=== PATIENT | female | born 1950 | race Caucasian/White ===

== ENCOUNTER → 2016-12-03 | Outpatient (CLI) | payer OTHER | LOC: FIMAGING 09:57 | PROVIDERS: ATTEND Physician Assistant | DX: R93.7 Abnormal findings on diagnostic imaging of other parts of musculoskeletal system (principal) | CPT/HCPCS: 78306; A9503 ==

== ENCOUNTER → 2016-12-17 | Outpatient (CLI) | payer OTHER ==
[~2016-12-17] MED LIST: GADOBUTROL 10 ML VIAL IVP ONE
== END ==
LOC: FIMAGING 12:07
PROVIDERS: ATTEND Physical Medicine & Rehabilitation
DX: M99.85 Other biomechanical lesions of pelvic region (principal); M77.8 Other enthesopathies, not elsewhere classified
CPT/HCPCS: A9585

== ENCOUNTER 2016-12-28 10:04 | Day surgery (SDC) | payer OTHER ==
[2016-12-28 11:09] LABS: % IMMATURE GRANULYOCYTES 0.2 % (0.0-1.1); ABSOLUTE IMMATURE GRANULOCYTES 0.01 10^3/uL (0.00-0.10); ADD DIFF? NO; ADD MORPH? NO; ADD SCAN? NO; ATYPICAL LYMPHOCYTE FLAG 0 (0-99); FRAGMENT RBC FLAG 0 (0-99); HEMATOCRIT 36.9 % (38.0-47.0); HEMOGLOBIN 12.6 g/dL (12.6-16.3); LEFT SHIFT FLG 0 (0-99); LIPEMIA HEMOLYSIS FLAG 90 (0-99); MEAN CELL HEMOGLOBIN 32.6 pg (27.9-34.1); MEAN CELL HEMOGLOBIN CONCENTR. 34.1 g/dL (32.4-36.7); MEAN CELL VOLUME 95.6 fL (81.5-99.8); MEAN PLATELET VOLUME 9.4 fL (8.7-11.7); PLATELET CLUMPS FLAG 10 (0-99); PLATELET COUNT 335 10^3/uL (150-400); RED BLOOD CELL COUNT 3.86 10^6/uL (4.18-5.33); RED CELL DISTRIBUTION WIDTH 12.7 % (11.5-15.2)
[2016-12-28] MEDS ORDERED: MIDAZOLAM 2 MG/2 ML VIAL ONE (11:19)
[2016-12-28] MEDS ORDERED: fentaNYL 100 MCG/2 ML INJ ONE (11:19)
[2016-12-28 11:21] LABS: INR 1.05 (0.83-1.16); PROTIME(PATIENT) 13.6 SEC (12.0-15.0)
[2016-12-28 11:22] LABS: APTT 26.9 SEC (23.0-38.0)
== END 2016-12-28 14:30 | disposition home or self-care (01) ==
LOC: FIMAGING 10:04
PROVIDERS: ATTEND Physician Assistant
PROC: 0QB33ZX Excision of Left Pelvic Bone, Percutaneous Approach, Diagnostic (ICD-10-PCS; principal; 2016-12-28 13:10)
DX: R93.7 Abnormal findings on diagnostic imaging of other parts of musculoskeletal system (principal)
CPT/HCPCS: J2250; J3010

== ENCOUNTER → 2017-02-13 | Outpatient (CLI) | payer OTHER | LOC: FIMAGING 15:00 | DX: Z12.31 Encounter for screening mammogram for malignant neoplasm of breast (principal); Z80.3 Family history of malignant neoplasm of breast | CPT/HCPCS: G0202 ==

== ENCOUNTER → 2017-04-08 | Outpatient (CLI) | payer OTHER | LOC: FIMAGING 11:10 | PROVIDERS: ATTEND Internal Medicine | DX: Z13.820 Encounter for screening for osteoporosis (principal); M81.0 Age-related osteoporosis without current pathological fracture; Z82.62 Family history of osteoporosis; Z78.0 Asymptomatic menopausal state ==

== ENCOUNTER → 2017-10-15 | Outpatient (CLI) | payer OTHER | LOC: FIMAGING 15:20 | PROVIDERS: ATTEND Physician Assistant | DX: M89.9 Disorder of bone, unspecified (principal) | CPT/HCPCS: 72197; A9585 ==

== ENCOUNTER → 2017-11-20 | Outpatient (CLI) | payer OTHER | LOC: FIMAGING 14:22 | PROVIDERS: ATTEND Internal Medicine | DX: N28.1 Cyst of kidney, acquired (principal) ==

== ENCOUNTER → 2018-03-26 | Outpatient (CLI) | payer OTHER | LOC: FIMAGING 10:43 | PROVIDERS: ATTEND Internal Medicine | DX: Z12.31 Encounter for screening mammogram for malignant neoplasm of breast (principal) ==

== ENCOUNTER → 2019-04-13 | Outpatient (CLI) | payer OTHER | LOC: FIMAGING 11:19 ==